=== PATIENT | female | born 1960 | race Caucasian/White ===

== ENCOUNTER 2022-12-25 16:33 | Emergency (ER) | payer MEDICAID ==
[~2022-12-25] VITALS: Ht 160 cm; Wt 76.0 kg
[2022-12-25 16:43] VITALS: BP 136/94; PULSE 75; RESP 18; TEMP 98.7; O2SAT 98
[2022-12-25] MEDS ORDERED: LORAZEPAM 0.5MG TABLET PO ONE (19:00)
[2022-12-25 19:17] LABS: CHLORIDE 108 mEq/L (98-107)
[2022-12-25 19:19] LABS: BASOPHILS % 0.4 % (0.0-2.0); EOSINOPHILS % 0.6 % (0.0-5.0); HEMATOCRIT. 41.3 % (36.0-48.0); LYMPHOCYTES % 28.7 % (20.0-50.0); MEAN CORPUSCULAR HEMOGLOBIN 28.9 pg (28.0-32.0); MEAN CORPUSCULAR VOLUME 85.4 fL (81.0-99.0); MEAN PLATELET VOLUME 9.6 fl (7.4-10.4); MONOCYTES % 6.1 % (2.0-8.0); NEUTROPHILS % 64.2 % (40.0-76.0); PLATELET 244 x1000/uL (130-400); RED BLOOD CELL COUNT 4.84 mill/uL (4.2-5.4); RED CELL DISTRIBUTION WIDTH 22.2 % (11.6-14.6)
[2022-12-25 19:34] LABS: T4 FREE 1.12 ng/dL (0.76-1.46)
[2022-12-25 19:44] LABS: PLATELET ESTIMATE NORMAL
[2022-12-25 20:08] LABS: CLARITY URINE CLEAR (CLEAR); COLOR URINE YELLOW (YELLOW); KETONES URINE NEGATIVE (NEGATIVE); LEUKOCYTE ESTERASE URINE NEGATIVE (NEGATIVE); NITRITE URINE NEGATIVE (NEGATIVE); OCCULT BLOOD URINE NEGATIVE (NEGATIVE); PH URINE 5.5 (4.5-8.0); PROTEIN URINE NEGATIVE (NEGATIVE); SPECIFIC GRAVITY URINE 1.012 (1.005-1.030); UROBILINOGEN URINE 0.2 E.U./dL (0.2-1.0)
== END 2022-12-25 22:49 | disposition home or self-care (01) ==
LOC: ER 16:33
DX: F41.9 Anxiety disorder, unspecified (principal); Z90.49 Acquired absence of other specified parts of digestive tract; Z90.710 Acquired absence of both cervix and uterus; F32.9 Major depressive disorder, single episode, unspecified
CPT/HCPCS: 36415; 80053; 81003; 84439; 84443; 85025; 93005; 99284